=== PATIENT | male | born 1980 ===

== ENCOUNTER 2025-08-12 18:56 | Emergency (ER) | payer OTHER, SELFPAY ==
--- NOTE | ~2025-08-12 | XR_ITS ---
XR ribs RT 2V INDICATION: Lower rib pain COMPARISON: None FINDINGS: 3 views of the right ribs demonstrate no acute fracture or dislocation. IMPRESSION: No acute fracture or dislocation. Reviewed, dictated and finalized at location S. SKILLS SPECIALIST
--- OUTSIDE RECORDS SUMMARY | 2025-08-12 18:59 | XMS_ITS | Encounter Summary ---
Author Organization [facility] Address [address] [place] [address] Care Team Providers Care Psychiatric Secretary Name Role Phone Unavailable Primary Care Provider Unavailabl e Encounter Details Date Type Department Care Team (Late st Contact Info) Description 04/19/2022 Lab Requisition [facility] DermPath Lab [address] [place] [address] Jean Carlos Rivera MD [address] [place] [id number] Social History Tobacco Use Types Packs/Day Years Used Date Smoking Tobacco: Never Assessed Sex and Gender Information Value Date Recorded Sex Assigned at Not on file Legal Sex Male 6:11 AM CDT Gender Identity Not on file Sexual Orientation Not on file documented as of this encounter Plan of Treatment Not on file documented as of this encounter Procedures Procedure Name Priority Date/Time Associated Diagnosis Comments DERMATOPATHOLOGY Routine 04/17/2022 3:33 AM CDT documented in this encounter Results * DERMATOPATHOLOGY (04/17/2022 3:33 AM CDT) Case Report Dermatopathology Report Case: [id number] Authorizing Provider: Jean Carlos Rivera MD Collected: 04/17/2022 03:33 AM Ordering Location: [facility] DermPath Lab Received: 04/19/2022 06:49 AM Pathologist: Sudha Pollock MD Specimen: Skin, right post neck 2 1:13 PM CDT DERMATOPATHOLOGY LABORATORY Final Diagnosis Specimen A. SKIN, right post neck: INTRADERMAL MELANOCYTIC NEVUS (D22.4) 2 1:13 PM CDT DERMATOPATHOLOGY LABORATORY at 1313 CDT Clinical History Nevus. Path# [id number] 2 1:13 PM CDT DERMATOPATHOLOGY LABORATORY Gross Description Specimen A: Received is one formalin filled container labeled with the patient's name and designated right post neck. The specimen consists of a shave biopsy measuring [id number]. Jar 0. 2 1:13 PM CDT DERMATOPATHOLOGY LABORATORY Microscopic Description Specimen A. SKIN, right post neck: There are nests of cytologically bland melanocytes within the dermis that mature with depth. 2 1:13 PM CDT DERMATOPATHOLOGY LABORATORY Disclaimer An external and internal positive and negative controls are appropriate for the histochemical, immunohistochemical and immunofluorescence stain(s) in this case (if any), except where stated explicitly. The performance characteristics of the stain(s) cited in this report were developed and its performance characteristic determined by the Dermatopathology Laboratory at [facility], directed by Dr. Tato Burgess. These tests need not be, and therefore are not, approved by the [place] Food and Drug Administration. The tests are used for clinical purposes. Billing Codes Specimen Charges Stain Charges 20993 1 2 1:13 PM CDT DERMATOPATHOLOGY LABORATORY Embedded Images 2 1:13 PM CDT DERMATOPATHOLOGY LABORATORY Pathology/Cytolo gy TISSUE SPECIMEN FROM SKIN / Unknown 04/17/2022 3:33 AM CDT 04/19/2022 6:49 AM CDT us Jean Carlos Rivera MD LAB - PATHOLOGY/CYTOLOGY ORDER DANIEL Final Result DERMATOPATHOLOGY LABORATORY [facility] - Department of Dermatology [address] [place] [address], [place] [phone] documented in this encounter Visit Diagnoses Not on filedocumented in this encounter
--- OUTSIDE RECORDS SUMMARY | 2025-08-12 18:59 | XMS_ITS | Clinical Summary ---
Author Organization [facility] Address [address] [facility] [place] [address] Care Team Providers Care Repeater Operator Name Role Phone Unavailable Primary Care Provider Unavailabl e Source Comments [facility],non-owned Affiliates and Associated Physician Practices is amultiple site organization consisting of ambulatory clinics and hospital sitesin [place], [place] and [place]. This disclosure is being madepursuant to the Care Everywhere program and may not contain all information available regarding this patient. Last updated 18.[facility] Social History Tobacco Use Types Packs/Day Years Used Date Smoking Tobacco: Never Assessed Sex and Gender Information Value Date Recorded Sex Assigned at Not on file Legal Sex Male 6:11 AM CDT Gender Identity Not on file Sexual Orientation Not on file Plan of Treatment Health Maintenance Due Date Last Done Comments LIPID TESTING 1981 HIV SCREENING 1996 HEPATITIS C SCREENING 09/02/1999 DTAP/TDAP/TD VACCINES (1 - Tdap) 2000 HEPATITIS B VACCINE (1 of 3 - 19+ 3-dose series) 2000 HPV VACCINE (1 - 3-dose SCDM series) 2008 DEPRESSION SCREENING 08/26/2024 COVID-19 VACCINE (1 - 2024-2 6 season) 2025 INFLUENZA VACCINE (#1) 2025 ZOSTER VACCINE (1 of 2) 2031 HIB VACCINE Aged Out No longer eligi ble based on patient's age to complete this topic MENINGOCOCCAL (Group B) VACC INE SHARED DECISION-MAKING Aged Out No longer eligibl e based on patient's age to complete this topic MENINGOCOCCAL GROUPS A/C/Y/W VACCINE Aged Out No longer eligible b ased on patient's age to complete this topic PNEUMOCOCCAL VACCINE Aged Out No long er eligible based on patient's age to complete this topic Insurance [employer]
--- OUTSIDE RECORDS SUMMARY | 2025-08-12 18:59 | XMS_ITS | Clinical Summary ---
Author Organization [address] Address [address] [place] [address] Care Team Providers Care Wallcovering Hanger Name Role Phone No, Physician Primary Care Provider [phone] Allergies No known active allergies Medications No known medications Active Problems No known active problems Family History Medical History Relation Name Comments Arthritis Other Diabetes Other Relation Name Status Comments Other Social History Tobacco Use Types Packs/Day Years Used Date Smoking Tobacco: Never Smokeless Tobacco: Never Personal Safety Answer Date Recorded Getting School Help Needed Not on file 10/25 Sex and Gender Information Value Date Recorded Sex Assigned at Not on file Legal Sex Male 2:47 PM EXCELSIOR CUTTER Gender Identity Not on file Sexual Orientation Not on file Last Filed Vital Signs Vital Sign Reading Time Taken Comments Blood Pressure 121/77 08/31/2021 10:48 AM EXCELSIOR CUTTER Pulse 75 08/31/2021 10:48 AM EXCELSIOR CUTTER Temperature - - Respiratory Rate - - Oxygen Saturation - - Inhaled Oxygen Concentration - - Weight 95.5 kg (210 lb 8 oz) 08/31/2021 10:48 AM EXCELSIOR CUTTER Height 182.9 cm (6') 08/31/2021 10:48 AM EXCELSIOR CUTTER Body Mass Index 28.55 08/31/2021 10:48 AM EXCELSIOR CUTTER Plan of Treatment Not on file Insurance LOCAL [employer]US [employer] EMPL[employer]EE PLAN [employer] Address: [address] [place] [address] Care Teams Wallcovering Hanger Relationship Specialty Start Date End Date No, Physician PCP - General 08/06/17
[2025-08-12 19:00] VITALS: BP 136/87; PULSE 65; RESP 16; TEMP 36.7; O2SAT 100
[2025-08-12 19:21] VITALS: BP 129/79; PULSE 77; RESP 16; TEMP 36.7; O2SAT 100
--- NOTE | 2025-08-12 19:30 | ED_ITS ---
HPI - Skin/Abscess/Foreign Bdy General Chief complaint: Skin/Abscess/Foreign Body Stated complaint: ?rash Time Seen by Provider: 08/12/25 19:19 History of Present Illness HPI narrative: 44-year-old healthy male presenting with right ribcage pain and irritation. 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 He states he was poked multiple times by exposed wiring and metal and then had some dry itchy skin afterwards in the areas that he was poked. He has some pain locally in his right lateral ribcage where he was complaining of the most pain. Symptoms come and go and states that he was having some raised skin findings have not resolved. No systemic symptoms. Was otherwise in his normal state of health. Denies any other complaints aside from local pain with tenderness to palpation. No difficulty breathing, tachypnea, dyspnea, chest discomfort otherwise. No overlying skin irritation presently. Has tried some lotion with interval improvement in symptoms. Related Data Allergies Allergy/AdvReac Type Severity Reaction Status Date / Time No Known Allergies Allergy Verified 08/12/25 19:10 Review of Systems 2 Review of Systems: As reviewed above in HPI All systems reviewed & are unremarkable except as noted in HPI and below Exam 2 Narrative: GENERAL: [Well-appearing, well-nourished, and in no acute distress.] HEAD: [Normocephalic, atraumatic.] EYES: [PERRLA and EOMI.] ENT: Nares clear, no rhinorrhea or epistaxis. Mucous membranes moist. NECK: Supple. CHEST: No respiratory distress. No tachypnea. Symmetric chest rise. Focal tenderness to palpation over the right lateral ribcage specifically around intercostal 6.. No overlying skin deformity or discoloration. No crepitus with palpation. No bruit shins or overlying skin irritation evident. ABDOMEN: [Soft, nondistended], [nontender], [No rigidity or guarding] EXTREMITIES: Normal range of motion. [No edema.] SKIN: Warm, dry, no rash. NEURO: [No focal deficits]. Alert and oriented [x3.] PSYCH: [Normal mood and affect.] Course Vital Signs Vital signs: Vital Signs Temperature 36.7 C 08/12/25 19:00 Pulse Rate 65 12/18/25 19:00 Respiratory Rate 16 08/12/25 19:00 Blood Pressure 136/87 08/12/25 19:00 Pulse Oximetry 100 08/12/25 19:00 Oxygen Delivery Room Air 08/12/25 19:00 Temperature 36.7 C 08/12/25 19:21 Pulse Rate 75 08/12/25 20:19 Respiratory Rate 16 08/12/25 20:19 Blood Pressure 125/63 08/12/25 20:19 Pulse Oximetry 99 08/12/25 20:19 Oxygen Delivery Room Air 08/12/25 19:21 [facility] Narrative Medical decision making narrative: 44-year-old healthy male presenting with right ribcage pain and irritation. 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 He states he was poked multiple times by exposed wiring and metal and then had some dry itchy skin afterwards in the areas that he was poked. He has some pain locally in his right lateral ribcage where he was complaining of the most pain. Symptoms come and go and states that he was having some raised skin findings have not resolved. No systemic symptoms. Was otherwise in his normal state of health. Denies any other complaints aside from local pain with tenderness to palpation. No difficulty breathing, tachypnea, dyspnea, chest discomfort otherwise. No overlying skin irritation presently. Has tried some lotion with interval improvement in symptoms. No respiratory distress. No tachypnea. Symmetric chest rise. Focal tenderness to palpation over the right lateral ribcage specifically around intercostal 6.. No overlying skin deformity or discoloration. No crepitus with palpation. No bruit shins or overlying skin irritation evident. Most likely musculoskeletal contusion versus less likely rib dislocation versus fracture versus local skin reaction or muscle spasm/pain. Imaging was obtained with patient's family expressed wanting laboratory studies as well also ordered basic panel. He is hemodynamically stable and will be discharged upon completion of workup. Offered him topical analgesia medications and he declined. Laboratory studies are all normal in reassuring. X-ray shows no fracture dislocation. Safe for discharge. Differential Diagnosis Differential Diagnosis: Most likely musculoskeletal contusion versus less likely rib dislocation versus fracture versus local skin reaction or muscle spasm/pain Lab Data [facility] Lab Attestation statement: I personally reviewed the patient's lab results. 08/12/25 19:42 08/12/25 19:42 Labs: Lab Results 08/12/25 Range/Units 19:42 WBC 6.3 (4.5-10.0) K/mm3 RBC 5.50 (4.6-6.20) M/mm3 Hgb 15.9 (14.0-18.0) g/dL Hct 45.8 (42.0-52.0) % MCV 83.3 (80-100) fl MCH 28.9 (26-34) pg MCHC 34.7 (32-36) g/dl RDW 13.0 (11.5-14.5) % Plt Count 188 (150-375) k/mm3 MPV 12.4 H (7.4-10.4) fl Immature Gran % (Auto) 0.2 (0-0.5) % Neut % (Auto) 61.3 (45.5-73.1) % Lymph % (Auto) 26.4 (18.3-44.2) % [place] % (Auto) 10.2 H (2.6-8.5) % Eos % (Auto) 1.3 (0-4.4) % Baso % (Auto) 0.6 (0.2-1.2) % Lymph # (Auto) 1.65 (0.9-3.2) K/mm3 [place] # (Auto) 0.6 (0.1-0.6) K/mm3 Eos # (Auto) 0.1 (0-0.3) K/mm3 Baso # (Auto) 0.0 (0.0-0.1) K/mm3 Abs Immat Gran (auto) 0.01 (0.00-0.031) K/mm3 Absolute Neuts (auto) 3.8 (1.3-6.7) K/mm3 Absolute Nucleated RBC 0.000 (0.0-0.012) K/mm3 Nucleated RBC % 0.0 (0.0-0.2) % Sodium 138 (137-145) mmol/L Potassium 3.9 (3.4-5.0) mmol/L Chloride 102 (98-107) mmol/L Carbon Dioxide 27 (22-30) mmol/L Anion Gap 9 (4-12) mmol/L BUN 13 (9-20) mg/dL Creatinine 0.91 (0.7-1.3) mg/dL Estim Creat Clear Calc 101 ml/min Estimated GFR > 60 (59 - ) Glucose 94 (65-110) mg/dL Calcium 9.8 (8.4-10.2) mg/dL Total Bilirubin 1.0 (0.2-1.3) mg/dL AST 23 (17-59) U/L ALT 26 (6-50) U/L Alkaline Phosphatase 58 (38-126) U/L Total Creatine Kinase 79 (55-170) U/L Total Protein 8.3 H (6.3-8.2) g/dL Albumin 5.1 (3.5-5.1) g/dL Imaging Data Attestation: I personally reviewed and interpreted this imaging study as follows: My impression: Impressions Ribs X-Ray 08/12/25 19:38 IMPRESSION: No acute fracture or dislocation. Radiologist's impression: ITS Impressions Ribs X-Ray 08/12/25 19:38 IMPRESSION: No acute fracture or dislocation. Discharge Plan Discharge Clinical Impression: Rib pain on right side Patient Disposition: Home Condition: Stable Instructions: Antibiotic Form Additional Instructions: x-ray showed no anomalies. No injury to the underlying rib or lung. No subcutaneous hematoma or bruising. All of your laboratory studies are normal. No signs of any organ damage or any muscle enzyme leakage. we have prescribed you a topical anti-inflammatory to help control symptoms but no emergent concerns today. Follow-up with regular primary care provider. Return with any emergent issues. Patient Language: Wolof Prescriptions: New diclofenac sodium 1 % gel 2 g topical QID Qty: 50 0RF Rx Instructions: apply to single elbow, wrist or hand; for hand includes palm/fingers/back of hand Follow-up/Referrals: PHYSICIAN NOT ON STAFF,NONSTAFF [Primary Care Provider] Time of Disposition: 20:06
--- OUTSIDE RECORDS SUMMARY | 2025-08-12 19:31 | XMS_ITS | Encounter Summary ---
Author Organization [facility] Address [address] [place] [address] Care Team Providers Care Hearing Screener Name Role Phone Unavailable Primary Care Provider Unavailabl e Encounter Details Date Type Department Care Team (Late st Contact Info) Description 04/19/2022 Lab Requisition [facility] DermPath Lab [address] [place] [address] Jean Carlos Rivera MD [address] [place] [phone] Social History Tobacco Use Types Packs/Day Years [...] AM CDT) Case Report Dermatopathology Report Case: [id number] Authorizing Provider: Jean Carlos Rivera MD Collected: 04/17/2022 03:33 AM Ordering Location: [facility] DermPath Lab Received: 04/19/2022 06:49 AM Pathologist: Sudha Pollock MD Specimen: Skin, right post neck 2 1:13 PM CDT DERMATOPATHOLOGY LABORATORY Final Diagnosis Specimen A. SKIN, right post neck: INTRADERMAL MELANOCYTIC NEVUS (D22.4) 2 1:13 PM CDT DERMATOPATHOLOGY LABORATORY at 1313 CDT Clinical History Nevus. Path# [id number] 2 1:13 PM CDT DERMATOPATHOLOGY LABORATORY Gross Description Specimen A: Received is one formalin filled container labeled with the patient's name and designated right post neck. The specimen consists of a shave biopsy measuring [id number]. Jar 0. 2 1:13 PM CDT DERMATOPATHOLOGY [...] characteristic determined by the Dermatopathology Laboratory at [facility], directed by Dr. Tato Burgess. These tests need not be, and therefore are not, approved by the [place] Food and Drug Administration. The tests are used for clinical purposes. Billing Codes Specimen Charges Stain Charges 74891 1 2 1:13 PM CDT DERMATOPATHOLOGY LABORATORY Embedded Images 2 1:13 PM CDT DERMATOPATHOLOGY LABORATORY Pathology/Cytolo gy TISSUE SPECIMEN FROM SKIN / Unknown 04/17/2022 3:33 AM CDT 04/19/2022 6:49 AM CDT us Jean Carlos Rivera MD LAB - PATHOLOGY/CYTOLOGY ORDER DANIEL Final Result DERMATOPATHOLOGY LABORATORY [facility] - Department of Dermatology [address] [place] [address], [facility] [phone] documented in this encounter Visit Diagnoses Not on filedocumented in this encounter
--- OUTSIDE RECORDS SUMMARY | 2025-08-12 19:31 | XMS_ITS | Clinical Summary ---
Author Organization [facility] Address [address] [facility] [place] [address] Care Team Providers Care Interactive Media Project Manager Name Role Phone Unavailable Primary Care Provider Unavailabl e Source Comments [facility],non-owned Affiliates and Associated Physician Practices is amultiple site organization consisting of ambulatory clinics and hospital sitesin [place], [place], [place] and [place]. This disclosure is being madepursuant to the Care Everywhere program and may not contain all information available regarding this patient. Last updated 18.[facility] Social History Tobacco Use Types Packs/Day Years [...]
--- OUTSIDE RECORDS SUMMARY | 2025-08-12 19:31 | XMS_ITS | Clinical Summary ---
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 Gender Identity Not on file Sexual Orientation Not on file Last Filed Vital Signs Vital Sign Reading Time Taken Comments Blood Pressure 121/77 08/31/2021 10:48 AM OPTICAL GOODS WORKER Pulse 75 08/31/2021 10:48 AM OPTICAL GOODS WORKER Temperature - - Respiratory Rate - - Oxygen Saturation - - Inhaled Oxygen Concentration - - Weight 95.5 kg (210 lb 8 oz) 08/31/2021 10:48 AM OPTICAL GOODS WORKER Height 182.9 cm (6') 08/31/2021 10:48 AM OPTICAL GOODS WORKER Body Mass Index 28.55 08/31/2021 10:48 AM OPTICAL GOODS WORKER Plan of Treatment Not on file Insurance LOCAL PLUS [employer] EMPLOYEE PLAN [facility] [employer] [employer] [facility] [employer]EE HE[employer] PLANS Address: [address] [place] [address] Care Teams Journalists And Other Writers Relationship Specialty Start Date End Date No, Physician PCP - General 08/06/17
--- OUTSIDE RECORDS SUMMARY | 2025-08-12 19:31 | XMS_ITS | Clinical Summary ---
Author Organization [facility] [employer] [place] Address [address] [place] [address] Care Team Providers Care Automotive Detailer Name Role Phone Unavailable Primary Care Provider Unavailabl e Allergies No known active allergies Medications No known medications Active Problems No known active problems Family History Medical History Relation Name Comments Diabetes Brother Diabetes Father Other Father rheumatoid arth ritis Other Paternal Grandmother rheumat oid arthritis Relation Name Status Comments Brother Father Paternal Grandmother Social History Tobacco Use Types Packs/Day Years Used Date Smoking Tobacco: Never Smokeless Tobacco: Never Tobacco Cessation:Counseling Given: Yes Alcohol Use Standard Drinks/Week Comments Not Currently 0 (1 standard drink = 0.6 oz pur e alcohol) Sex and Gender Information Value Date Recorded Sex Assigned at Not on file Legal Sex Male 3:08 PM YOUTH MINISTER Gender Identity Not on file Sexual Orientation Not on file Last Filed Vital Signs Vital Sign Reading Time Taken Comments Blood Pressure 128/78 01/09/2023 1:07 PM CDT Pulse 58 01/09/2023 1:07 PM CDT Temperature 36.6 C (97.8 F) 01/09/2023 1:07 PM CDT Respiratory Rate 18 01/09/2023 1:07 PM CDT Oxygen Saturation 97% 01/09/2023 1:07 PM CDT Inhaled Oxygen Concentration - - Weight 91.6 kg (202 lb) 01/09/2023 1:07 PM CDT Height 182.9 cm (6') 01/09/2023 1:07 PM CDT Body Mass Index 27.4 01/09/2023 1:07 PM CDT Plan of Treatment Health Maintenance Due Date Last Done Comments DTAP/TDAP/TD VACCINES (1 - Tdap) 2000 HEPATITIS B VACCINES (1 of 3 - 19+ 3-dose series) 08/26 INFLUENZA VACCINE (#1) 2025 HPV VACCINES (No Doses Required) Completed Insurance [employer] OPEN ACCESS
[2025-08-12 19:47] LABS: Hematocrit 45.8 % (42.0-52.0); Hemoglobin 15.9 g/dL (14.0-18.0); Immature Granulocyte Percent A 0.2 % (0-0.5); Lymphocytes Absolute Auto 1.65 K/mm3 (0.9-3.2); Mean Corpuscular HGB Conc 34.7 g/dl (32-36); Mean Corpuscular Hemoglobin 28.9 pg (26-34); Mean Corpuscular Volume 83.3 fl (80-100); Nucleated Red Blood Cells Absolute Auto 0.000 K/mm3 (0.0-0.012); Nucleated Red Blood Cells Perc 0.0 % (0.0-0.2); Platelet Count Result 188 k/mm3 (150-375); Red Blood Count 5.50 M/mm3 (4.6-6.20); White Blood Count 6.3 K/mm3 (4.5-10.0)
[2025-08-12 19:57] LABS: Alanine Aminotransferase 26 U/L (6-50); Albumin Level 5.1 g/dL (3.5-5.1); Alkaline Phosphatase 58 U/L (38-126); Anion Gap 9 mmol/L (4-12); Aspartate Amino Transferase 23 U/L (17-59); Bilirubin,Total 1.0 mg/dL (0.2-1.3); Blood Urea Nitrogen 13 mg/dL (9-20); Calcium 9.8 mg/dL (8.4-10.2); Carbon Dioxide 27 mmol/L (22-30); Chloride 102 mmol/L (98-107); Creatine Kinase 79 U/L (55-170); Estimated CRCL calculation 101 ml/min; Estimated Glomerular Filt Rate > 60; Glucose 94 mg/dL (65-110); Potassium 3.9 mmol/L (3.4-5.0); Sodium 138 mmol/L (137-145); Total Protein 8.3 g/dL (6.3-8.2)
[2025-08-12 20:19] VITALS: BP 125/63; PULSE 75; RESP 16; O2SAT 99
== END 2025-08-12 20:21 | disposition home or self-care (01) ==
PROVIDERS: Emergency Provider Student in an Organized Health Care Education/Training Program
DX: R07.89 Other chest pain (principal)
CPT/HCPCS: 36415; 71100; 80053; 82550; 85025; 99283